=== PATIENT | female | born 1955 | race Caucasian/White ===

== ENCOUNTER → 2024-01-29 13:58 | Outpatient (REF) | payer MEDICARE, BC, SELFPAY | LOC: WDC 13:58 | PROVIDERS: ATTENDING PHYSICIAN Internal Medicine | DX: Z12.31 Encounter for screening mammogram for malignant neoplasm of breast (principal) | CPT/HCPCS: 77063; 77067 ==

== ENCOUNTER 2024-04-26 12:54 | Outpatient (RCR) | payer MEDICARE, BC, SELFPAY | END 2024-04-26 23:59 | disposition home or self-care (01) | LOC: RPT 12:54 | PROVIDERS: ATTENDING PHYSICIAN Physician Assistant Surgical; FAMILY PHYSICIAN Internal Medicine | DX: M25.551 Pain in right hip (principal); Z73.6 Limitation of activities due to disability; R26.2 Difficulty in walking, not elsewhere classified | CPT/HCPCS: 97112; 97162 ==

== ENCOUNTER 2024-05-02 01:51 | Emergency (ER) | payer MEDICARE, BC, SELFPAY ==
[2024-05-02 01:57] VITALS: BP 150/79; BMI 27.5
[2024-05-02 02:08] LABS: % Basophils 0.6 % (0-2); % Eosinophils 1.9 % (0-6); % Immature Granulocytes 0.2 % (0-0.5); % Lymphocytes 48.5 % (20.5-51.1); % Monocytes 7.1 % (1.7-9.3); % Neutrophils 41.7 % (42.2-75.2); Absolute Eosinophils 0.1 10^3/uL (0-0.7); Absolute Monocytes 0.4 10^3/uL (0.1-0.6); Absolute Neutrophils 2.6 10^3/uL (1.4-6.5); Hematocrit 41.9 % (37.0-47.0); Hemoglobin 14.2 g/dL (12.0-16.0); Mean Corp Hgb Conc. 33.9 g/dL (33.0-37.0); Mean Corpuscular Hgb 28.3 pg (27.0-31.0); Mean Corpuscular Volume 83.5 fL (81.0-99.0); Mean Platelet Volume 9.4 fL (7.4-10.4); Nucleated Red Blood Cells % 0 %; Platelet Count 294 10^3/uL (130-400); Red Blood Cell Count 5.02 10^6/uL (4.20-5.40); Red Cell Dist. Width 13.2 % (11.5-14.5); White Blood Cell Count 6.2 10^3/uL (4.8-10.8)
--- NOTE | 2024-05-02 02:15 | ED.GENMED ---
History of Present Illness
<GRAHAM Bee - Last Filed: 05/02/24 04:49>
General
Chief Complaint: Chest Pain
Source: patient
Exam Limitations: none
Time Seen by Provider: 05/02/24 02:05
History of Present Illness
History of Present Illness:
Pt is a 68 y/o F who presents after waking up with chest pain at 12:30AM. The chest pain is located over her left breast and is described as squeezing sensation, rated 8/10 in severity. The chest pain lasted about 10 minutes. She took 325 ASA after
instructed by EMS. The pt reported associated fatigue, palpitations, lightheadedness and chills. She also noted complaints of intermittent, shooting left sided flank pain x 1 day. She also had complaints of headaches in the morning for the past week
that improved with Ibuprofen. She denies nausea, vomiting, abdominal pain, fever, changes in urination or bowel movements.
Past History
<GRAHAM Bee - Last Filed: 05/02/24 04:49>
Past History
ED Past Medical History: None
ED Past Surgical History: None
Social History
Tobacco: Former smoker
Alcohol: None
Drug: Marijuana
Review of Systems
<GRAHAM Bee - Last Filed: 05/02/24 04:49>
Review of Systems
Allergies reviewed?: Yes
Constitutional: Reports fatigue, sleep disturbance and chills
EENT: Reports no symptoms
Respiratory: Reports no symptoms
Cardiac: Reports chest pain, diaphoresis and palpitations
ABD/GI: Reports no symptoms
: Reports flank pain
Musculoskeletal: Reports no symptoms
Skin: Reports no symptoms
Neurological: Reports headache
Endocrine: Reports no symptoms
Hematologic/Lymphatic: Reports no symptoms
Psychiatric: Reports no symptoms
Phy Exam
<GRAHAM Bee - Last Filed: 05/02/24 04:49>
General Physical Exam
General Presentation: well appearing and no apparent distress
General age: appears stated age
General Skin: warm and dry
General Habitus: normal
General Mental: alert
General Hydration: appears well hydrated
ENT Exam
ENT Exam: EOMI and neck supple
Eye Exam
Eye Exam: PERRL, EOMI, cornea clear and conjunctiva normal
Cardiovascular Exam
Cardiovascular Exam: regular rate/rhythm, no edema and normal peripheral pulses
Pulmonary Exam
Pulmonary Exam: lungs clear, no respiratory distress, no rales, chest non tender, no crackles, no rhonchi, no stridor, no wheezing and no cough
Gastrointestinal Exam
Gastrointestinal Exam: soft, non distended and no cva tenderness
Neurological Exam
Neurological Exam: alert, oriented x3, CN II-XII intact, no motor deficits, normal reflexs, no sensory deficits and speech normal
Musculoskeletal Exam
Musculoskeletal Exam: full ROM, no edema and neuro vasc intact
Skin Exam
Skin Exam: normal color and warm/dry
Psychiatric Exam
Psychiatric Exam: normal mood/affect
Scores
<GRAHAM Bee - Last Filed: 05/02/24 04:49>
Heart Score for Chest Pain Patients
STEMI patient?: No
History: Slightly or Non-Suspicious
ECG: Normal
Age: >/= 65 years
Risk Factors: No Risk Factors
Troponin: </= Normal Limit
Heart Score for Chest Pain Patients: 2
Heart Score Risk: 2.5% MACE over next 6 weeks
<Martina Singer DO - Last Filed: 05/02/24 05:01>
Heart Score for Chest Pain Patients
Heart Score for Chest Pain Patients: 2
Heart Score Risk: 2.5% MACE over next 6 weeks
Course
<GRAHAM Bee - Last Filed: 05/02/24 04:49>
Orders/Labs/Results
Orders:
Orders
05/02/24 01:53
Electrocardiogram (*1) Urgent
Reason for Study: Chest Pain
Cardiac Monitoring- Treatment ONCE
EKG- Treatment ONCE
05/02/24 01:57
CMP [Comprehensive Metabolic Panel] Urgent
Complete Blood Count/With Diff Urgent
Free T4 Urgent
TSH Reflex To Free T4 Urgent
Comment: ADD ON
Troponin I Urgent
05/02/24 02:05
Chest [CR Chest - 2 Views ] Urgent
Comment:
Reason For Exam: chest pain
05/02/24 02:34
Add On- LAB Urgent
Tests Added?: TSH w reflex to free T-4
05/02/24 04:02
Troponin I Urgent
Abnormal Lab Results
05/02/24
01:57
Neutrophils % 41.7 L %
(42.2-75.2)
BUN 22 H mg/dl
(7-17)
Glucose 121 H mg/dl
(70-99)
TSH (Reflex) 5.16 H uIU/ml
(0.47-4.68)
05/02/24 01:57
05/02/24 01:57
Vital Signs
Initial and Last Documented VS:
Initial Vital Signs
Temp Pulse Resp BP Pulse Ox
98.4 F 83 18 150/79 99
05/02/24 01:57 05/02/24 01:57 05/02/24 01:57 05/02/24 01:57 05/02/24 01:57
Last Documented Vital Signs
Temp Pulse Resp BP Pulse Ox
98.4 F 65 15 143/67 98
05/02/24 01:57 05/02/24 04:00 05/02/24 04:00 05/02/24 04:00 05/02/24 04:00
<Martina Singer, DO - Last Filed: 05/02/24 05:01>
Orders/Labs/Results
Orders:
Orders
05/02/24 01:53
Electrocardiogram (*1) Urgent
Reason for Study: Chest Pain
Cardiac Monitoring- Treatment ONCE
EKG- Treatment ONCE
05/02/24 01:57
CMP [Comprehensive Metabolic Panel] Urgent
Complete Blood Count/With Diff Urgent
Free T4 Urgent
TSH Reflex To Free T4 Urgent
Comment: ADD ON
Troponin I Urgent
05/02/24 02:05
Chest [CR Chest - 2 Views ] Urgent
Comment:
Reason For Exam: chest pain
05/02/24 02:34
Add On- LAB Urgent
Tests Added?: TSH w reflex to free T-4
05/02/24 04:02
Troponin I Urgent
Abnormal Lab Results
05/02/24
01:57
Neutrophils % 41.7 L %
(42.2-75.2)
BUN 22 H mg/dl
(7-17)
Glucose 121 H mg/dl
(70-99)
TSH (Reflex) 5.16 H uIU/ml
(0.47-4.68)
05/02/24 01:57
05/02/24 01:57
Vital Signs
Initial and Last Documented VS:
Initial Vital Signs
Temp Pulse Resp BP Pulse Ox
98.4 F 83 18 150/79 99
05/02/24 01:57 05/02/24 01:57 05/02/24 01:57 05/02/24 01:57 05/02/24 01:57
Last Documented Vital Signs
Temp Pulse Resp BP Pulse Ox
98.4 F 65 15 143/67 98
05/02/24 01:57 05/02/24 04:00 05/02/24 04:00 05/02/24 04:00 05/02/24 04:00
<GRAHAM Bee - Last Filed: 05/02/24 04:49>
*Critical Care Note
Total Time (30-74mins, 75-104mins- exclusive of procedures): Not Applicable
<Martina Singer DO - Last Filed: 05/02/24 05:01>
*Radiology
Radiology exam reviewed: preliminary read by ED provider (Chest x-ray is unremarkable. Clear lung cerrato. Normal heart size. Normal mediastinum.)
*Pulse Oximetry
Patient hypoxic: no
*EKG
Interpreted by ED Provider?: Yes
Interpretation: normal
Comparison EKG: no comparison EKG present
Rate: normal
Rhythm: sinus
[place]: normal axis
Interval: normal interval
QRS Pattern: normal QRS
Ischemia: no ischemia
*Spinning Machine Operator Interpretation
Rate: normal
Interpretation: normal
Rhythm: sinus
<GRAHAM Bee - Last Filed: 05/02/24 04:49>
Update Note
Update Note:
05/02/24, 0410: Pt is resting comfortably. She stated that she does not have any chest pain at the moment.
ED Attending Note
<GRAHAM Bee - Last Filed: 05/02/24 04:49>
-
Portions of this chart may have been created with voice recognition software.� Occasional wrong word or��sound alike� substitutions may have occurred due to the inherent limitations of voice recognition software.
<Martina Singer DO - Last Filed: 05/02/24 05:01>
ED Attending Note
Patient seen and examined by attending physician: Yes
ED Attending Note:
This is a 68-year-old woman who has history of intermittent gastritis/GERD takes famotidine on an as-needed basis. She states she awoke around 1230 this morning with somewhat abrupt onset of left chest/breast pain described as a squeezing sensation
accompanied with palpitations feeling that her heart was beating out of her chest and beating rapidly. Chest pain and palpitations were accompanied with diaphoresis, feeling hot and then transition to feeling cold. No radiation of the pain, no
nausea nor vomiting. She admits to feeling mildly lightheaded, mild shortness of breath. Symptoms lasted approximately 10 minutes and resolved without return.
She has prior history of palpitations and intermittent chest pain with unremarkable stress echo, echocardiogram and Holter monitor in 2019. Current episode of palpitations, chest pain is quite different from those previous episodes.
She has also noted intermittent sharp fleeting, pinpoint left lateral chest discomfort that initially began 2 days ago while driving. She then noted very mild discomfort once or twice yesterday without associated symptoms. She has not had a cough
no shortness of breath, no recent travel, no leg pain or swelling. She denies left lateral chest discomfort during her episode of left breast/anterior left chest pain tonight.
She arrives via EMS. Symptom-free upon EMS arrival. She was given 325 mg chewable aspirin prehospital.
She remains asymptomatic since arrival to the ED.
GENERAL: 68-year-old woman appears her stated age, bright and alert, pleasant, appears in no acute distress.
EYE: anicteric
NECK: Supple, nontender, no meningismus, no significant adenopathy.
ENT: oral mucosa is moist. No rhinorrhea.
CARDIAC: Regular rate and rhythm. no murmur.
LUNGS: Clear breath sounds bilaterally, no acute respiratory distress, no wheezes/rales/rhonchi. There is mild pinpoint tenderness left lateral 4th�5th intercostal space. Palpation seems to exactly reproduce patient's intermittent left lateral
chest discomfort that began intermittently 2 days ago.
ABDOMEN: Soft, nondistended, without focal tenderness, no r/g, no cvat. normoactive BS.
NEUROLOGICAL: Alert and oriented x3, no focal neuro deficits.
SKIN: Warm and dry, normal color, skin intact. No rash.
MUSCULOSKELETAL: No C/C/E. peripheral pulses are full and equal b/l. No palpable tenderness.
PSYCH: Normal and appropriate interaction.
Concern for acute tachyarrhythmia, ACS, GERD.
Pinpoint intercostal left lateral reproducible chest discomfort appears to be secondary issue not related to episode of palpitations, left breast/left chest pain that brought her to the ED tonight.
This pinpoint left lateral intercostal reproducible pain appears to be more musculoskeletal in nature. Patient does admit to watching her grand-kids this weekend, lifting her grandchildren etc.
No risk factors for thromboembolism, no family history of thromboembolism.
EKG is unremarkable showing normal sinus rhythm. No acute ST-T wave abnormalities. No old EKGs to compare.
Labs are pending including troponin. Will add thyroid functions.
Will check chest x-ray.
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
05/02/2024 0459 AM
Patient remains comfortable and asymptomatic. No further chest pain or palpitations.
Monitor continues to show normal sinus rhythm.
Labs are unremarkable including negative troponin x 2.
TSH is minimally elevated at 5.16 with normal free T4. Likely not a contributing factor.
Will discharge to home with recommendation to follow-up with her previous public health service officer, Dr. Shelley.
Follow-up with PCP as well.
Return precautions discussed.
Discharge Plan
Departure
Patient Disposition: Home (Routine Discharge)
Date of Disposition: 05/02/24
Time of Disposition: 04:57
Patient with high blood pressure during this ER visit?: No
Condition: Good
Discharge Problem:
Nonspecific chest pain, Heart palpitations
Instructions: Chest Pain CBC Follow Up, Heart Palpitations
Referrals:
Carmen Peacock MD [Family Provider] - Call in 1-3 days for appt
Leonel Shelley MD [Non-Admitting Privileges] - Call in 1-3 days for appt
Interventions
Interventions:
*Risk Screen - Suicide Last Done: 05/02/24 01:57
*General Assessment Last Done: 05/02/24 01:57
*Neglect/Abuse Screening Last Done: 05/02/24 01:57
ED- Fall Risk Assessment Last Done: 05/02/24 02:34
*ED COVID-19 Vaccine History Last Done: 05/02/24 01:57
ED- Cardiac Assessment Last Done: 05/02/24 02:34
Discharge Date and Time
Print Language: INDONESIAN
[2024-05-02 02:27] LABS: ALT (SGPT) 24 U/L (0-35); AST (SGOT) 25 U/L (14-36); Albumin 4.3 g/dl (3.5-5.0); Alkaline Phosphatase 53 U/L (38-126); Blood Urea Nitrogen 22 mg/dl (7-17); Calcium 9.5 mg/dl (8.4-10.2); Carbon Dioxide 24 mmol/L (22-30); Chloride 104 mmol/L (98-107); Estimated Creatinine Clearance 51 ml/min; Glucose 121 mg/dl (70-99); Sodium 140 mmol/L (135-145); Total Bilirubin 0.7 mg/dl (0.2-1.3); Total Protein 6.9 g/dl (6.3-8.2); eGFR > 60.00
[2024-05-02 02:34] LABS: Troponin I < 0.012 ng/ml
[2024-05-02 04:00] VITALS: BP 143/67
[2024-05-02 04:21] LABS: TSH Reflex To Free T4 5.16 uIU/ml (0.47-4.68)
[2024-05-02 04:34] LABS: Troponin I < 0.012 ng/ml
[2024-05-02 04:51] LABS: Free T4 1.34 ng/dl (0.78-2.19)
[2024-05-02 05:00] VITALS: BP 146/93
== END 2024-05-02 05:11 | disposition home or self-care (01) ==
LOC: EMR 01:51
PROVIDERS: EMERGENCY PHYSICIAN Emergency Medicine; FAMILY PHYSICIAN Internal Medicine
DX: R07.89 Other chest pain (principal); R00.2 Palpitations; K21.9 Gastro-esophageal reflux disease without esophagitis; N64.4 Mastodynia; Z87.19 Personal history of other diseases of the digestive system; Z87.891 Personal history of nicotine dependence
CPT/HCPCS: 99283; 71046; 80053; 84439; 84443; 84484; 85025; 93005

== ENCOUNTER 2024-05-03 14:00 | Outpatient (RCR) | payer MEDICARE, BC, SELFPAY | END 2024-05-03 23:59 | disposition home or self-care (01) | LOC: RPT 14:00 | PROVIDERS: ATTENDING PHYSICIAN Physician Assistant Surgical; FAMILY PHYSICIAN Internal Medicine | DX: M25.551 Pain in right hip (principal); Z73.6 Limitation of activities due to disability | CPT/HCPCS: 97110 ==

== ENCOUNTER → 2024-05-11 14:51 | Outpatient (REF) | payer MEDICARE, BC, SELFPAY | LOC: HWRCS 14:51 | PROVIDERS: ATTENDING PHYSICIAN Internal Medicine Cardiovascular Disease; FAMILY PHYSICIAN Internal Medicine | DX: R00.2 Palpitations (principal); R07.9 Chest pain, unspecified | CPT/HCPCS: 93306 ==

== ENCOUNTER → 2024-05-12 10:19 | Outpatient (REF) | payer MEDICARE, BC, SELFPAY | LOC: RCS 10:19 | PROVIDERS: ATTENDING PHYSICIAN Internal Medicine Cardiovascular Disease; FAMILY PHYSICIAN Internal Medicine | DX: R00.2 Palpitations (principal); R07.9 Chest pain, unspecified | CPT/HCPCS: 93017; 93350 ==

== ENCOUNTER → 2024-12-05 14:36 | Outpatient (REF) | payer MEDICARE, BC, SELFPAY | LOC: HWRAD 14:36 | PROVIDERS: ATTENDING PHYSICIAN Internal Medicine | DX: M81.0 Age-related osteoporosis without current pathological fracture (principal) | CPT/HCPCS: 77080 ==

== ENCOUNTER → 2025-03-30 06:53 | Outpatient (REF) | payer MEDICARE, BC, SELFPAY | LOC: HWWDC 06:53 | PROVIDERS: ATTENDING PHYSICIAN Internal Medicine | DX: Z12.31 Encounter for screening mammogram for malignant neoplasm of breast (principal) | CPT/HCPCS: 77063; 77067 ==

== ENCOUNTER → 2025-07-23 07:02 | Outpatient (REF) | payer MEDICARE, BC, SELFPAY | LOC: PAVMRI 07:02 | PROVIDERS: ATTENDING PHYSICIAN Orthopaedic Surgery; FAMILY PHYSICIAN Internal Medicine | DX: M25.511 Pain in right shoulder (principal) | CPT/HCPCS: 73221 ==